=== PATIENT | female | born 1980 | race Caucasian/White ===

== ENCOUNTER 2024-04-23 16:49 | Inpatient (IN) | payer OTHER ==
[2024-04-23 20:56] LABS: BASO % 1.1 % (0-2.0); HEMATOCRIT 36.2 % (32.4-45.2); HEMOGLOBIN 11.9 GM/dL (10.7-15.3); LYMPH % 20.4 % (8-40); MCH 28.9 pg (25.7-33.7); MCHC 32.9 g/dl (32.0-36.0); MEAN CELL VOLUME 87.6 fl (80-96); MEAN PLT VOLUME 8.6 fl (7.5-11.1); MONO % 8.9 % (3.8-10.2); NEUT % 68.6 % (42.8-82.8); PLATELET COUNT 386 10^3/uL (134-434); RBC 4.13 M/mm3 (3.60-5.2); RDW 15.8 % (11.6-15.6); WHITE BLOOD COUNT 13.9 K/mm3 (4.0-10.0)
[2024-04-23 21:06] LABS: INR 1.39 (0.83-1.09); PROTHROMBIN TIME (PATIENT) 15.3 SEC (9.7-13.0)
[2024-04-23 21:09] LABS: ACTIVATED PTT 34.3 SECONDS (25.2-36.5)
[2024-04-23 21:18] LABS: POTASSIUM 4.6 mmol/L (3.5-5.1)
[2024-04-23 21:20] LABS: ALBUMIN 3.2 g/dl (3.4-5.0); BLOOD UREA NITROGEN 14.5 mg/dL (7-18); CALCIUM 9.4 mg/dL (8.5-10.1)
[2024-04-23 21:23] LABS: CREATININE 0.8 mg/dL (0.55-1.3)
[2024-04-23 21:25] LABS: TOT PROT 7.1 g/dl (6.4-8.2)
[2024-04-23 21:46] LABS: ERYTHROCYTE SEDIMENTATION RATE 78 mm/hr (0-20)
[2024-04-24] MEDS ORDERED: ACETAMINOPHEN 500 MG TABLET (FP) PO PRN (02:08)
[2024-04-24 02:43] VITALS: BMI 36.8
[2024-04-24] MEDS: BENZTROPINE MESYLATE 2 MG TABLET PO SCH (11:28)
[2024-04-24] MEDS: ENOXAPARIN NA (PORCINE) 40 MG/0.4 ML DISP.SYRIN SQ SCH (11:29)
[2024-04-24 12:49] LABS: HEMATOCRIT 36.7 % (32.4-45.2); HEMOGLOBIN 12.2 GM/dL (10.7-15.3); MCH 28.8 pg (25.7-33.7); MCHC 33.2 g/dl (32.0-36.0); MEAN PLT VOLUME 8.7 fl (7.5-11.1); PLATELET COUNT 373 10^3/uL (134-434); RBC 4.22 M/mm3 (3.60-5.2); RDW 15.7 % (11.6-15.6); WHITE BLOOD COUNT 11.8 K/mm3 (4.0-10.0)
[2024-04-24 13:11] LABS: POTASSIUM 4.6 mmol/L (3.5-5.1)
[2024-04-24 13:18] LABS: CALCIUM 9.1 mg/dL (8.5-10.1)
[2024-04-24 13:19] LABS: ALBUMIN 3.1 g/dl (3.4-5.0); BLOOD UREA NITROGEN 14.6 mg/dL (7-18)
[2024-04-24 13:21] LABS: BILIRUBIN,TOTAL 1.2 mg/dL (0.2-1); TOT PROT 6.8 g/dl (6.4-8.2)
[2024-04-24 13:22] LABS: CREATININE 0.8 mg/dL (0.55-1.3)
[2024-04-24 18:44] LABS: INR 1.46 (0.83-1.09); PROTHROMBIN TIME (PATIENT) 15.9 SEC (9.7-13.0)
[2024-04-24 18:58] LABS: POTASSIUM 4.1 mmol/L (3.5-5.1)
[2024-04-24 19:00] LABS: BLOOD UREA NITROGEN 16.9 mg/dL (7-18); CALCIUM 9.1 mg/dL (8.5-10.1)
[2024-04-24 19:04] LABS: CREATININE 0.8 mg/dL (0.55-1.3)
[2024-04-24 19:05] LABS: BILIRUBIN,TOTAL 0.9 mg/dL (0.2-1); TOT PROT 6.8 g/dl (6.4-8.2)
[2024-04-24] MEDS: ACETAMINOPHEN 500 MG TABLET (FP) PO PRN (20:41)
[2024-04-24] MEDS: GABAPENTIN 300 MG CAPSULE PO SCH (22:09)
[2024-04-24] MEDS: DEXAMETHASONE SOD PHOSPHATE 10 MG/1 ML VIAL IVPUSH SCH (22:09)
[2024-04-25] MEDS: DEXAMETHASONE SOD PHOSPHATE 10 MG/1 ML VIAL IVPB SCH (01:53)
[2024-04-25 09:14] LABS: BASO % 0.3 % (0-2.0); HEMATOCRIT 36.9 % (32.4-45.2); LYMPH % 13.8 % (8-40); MCH 28.7 pg (25.7-33.7); MCHC 32.6 g/dl (32.0-36.0); MONO % 1.4 % (3.8-10.2); NEUT % 84.5 % (42.8-82.8); PLATELET COUNT 388 10^3/uL (134-434); RDW 15.9 % (11.6-15.6); WHITE BLOOD COUNT 8.1 K/mm3 (4.0-10.0)
[2024-04-25 09:42] LABS: MAGNESIUM 2.2 mg/dL (1.8-2.4); POTASSIUM 4.5 mmol/L (3.5-5.1)
[2024-04-25 09:45] LABS: CALCIUM 9.1 mg/dL (8.5-10.1)
[2024-04-25 09:46] LABS: MAGNESIUM 2.1 mg/dL (1.8-2.4); PHOSPHOROUS 4.3 mg/dL (2.5-4.9)
[2024-04-25 09:49] LABS: CREATININE 0.8 mg/dL (0.55-1.3); PHOSPHOROUS 4.3 mg/dL (2.5-4.9)
[2024-04-25 09:50] LABS: BILIRUBIN,TOTAL 1.2 mg/dL (0.2-1); TOT PROT 7.1 g/dl (6.4-8.2)
[2024-04-25] MEDS: ENOXAPARIN NA (PORCINE) 40 MG/0.4 ML DISP.SYRIN SQ ONE (17:53)
[2024-04-26] MEDS ORDERED: BACITRACIN ZINC 15 GM TUBE TOPICAL OINTMENT ONE ×2 (07:22→14:41)
[2024-04-26] MEDS ORDERED: LIDOCAINE HCL/PF 2% SDV 5ML VIAL ONE (07:32)
[2024-04-26] MEDS ORDERED: PROPOFOL 80 ML ONE (07:32)
[2024-04-26] MEDS ORDERED: ceFAZolin SODIUM 1 GM VIAL ONE ×2 (07:32→07:40)
[2024-04-26] MEDS ORDERED: BUPIVACAINE HCL/PF 0.5% (5MG/ML) 10 ML VIAL ONE (07:40)
[2024-04-26] MEDS ORDERED: THROMBIN (BOVINE) 20,000 UNIT VIAL TP ONE (07:40)
[2024-04-26] MEDS ORDERED: EPINEPHrine 1:1000 P/F - 1 MG/ML AMP ONE (07:40)
[2024-04-26 08:11] LABS: POTASSIUM 4.7 mmol/L (3.5-5.1)
[2024-04-26 08:18] LABS: BASO % 0.1 % (0-2.0); HEMATOCRIT 34.9 % (32.4-45.2); HEMOGLOBIN 11.4 GM/dL (10.7-15.3); LYMPH % 11.5 % (8-40); MCH 28.6 pg (25.7-33.7); MCHC 32.6 g/dl (32.0-36.0); MEAN CELL VOLUME 87.9 fl (80-96); MEAN PLT VOLUME 8.9 fl (7.5-11.1); NEUT % 85.4 % (42.8-82.8); PLATELET COUNT 425 10^3/uL (134-434); RBC 3.97 M/mm3 (3.60-5.2); RDW 15.6 % (11.6-15.6)
[2024-04-26 08:21] LABS: BILIRUBIN,TOTAL 0.6 mg/dL (0.2-1)
[2024-04-26 08:31] LABS: CALCIUM 9.3 mg/dL (8.5-10.1)
[2024-04-26 08:32] LABS: ALBUMIN 2.8 g/dl (3.4-5.0); BLOOD UREA NITROGEN 19.7 mg/dL (7-18)
[2024-04-26 08:35] LABS: CREATININE 0.8 mg/dL (0.55-1.3)
[2024-04-26 08:37] LABS: TOT PROT 6.7 g/dl (6.4-8.2)
[2024-04-26 08:38] LABS: INR 1.32 (0.83-1.09); PROTHROMBIN TIME (PATIENT) 14.4 SEC (9.7-13.0)
[2024-04-26 08:41] LABS: ACTIVATED PTT 30.8 SECONDS (25.2-36.5)
[2024-04-26] MEDS ORDERED: MIDAZOLAM HCL 2 MG/2 ML SINGLE DOSE VIAL ONE (08:45)
[2024-04-26] MEDS ORDERED: TRANEXAMIC ACID 1000 MG/10 ML VIAL ONE (08:50)
[2024-04-26] MEDS: ceFAZolin SODIUM 1 GM VIAL IVPB ONE ×2 (09:30→10:39)
[2024-04-26] MEDS ORDERED: HYDROmorphone HCl 2 MG/ML VIAL ONE (10:11)
[2024-04-26] MEDS ORDERED: PROPOFOL 20 ML ONE ×5 (10:12→13:35)
[2024-04-26] MEDS ORDERED: PROPOFOL 40 ML ONE ×2 (10:29→12:43)
[2024-04-26] MEDS: HYDROGEN PEROXIDE 473 ML PO ONE (10:39)
[2024-04-26] MEDS ORDERED: SUGAMMADEX SODIUM 200 MG/2 ML VIAL ONE ×2 (11:11)
[2024-04-26] MEDS ORDERED: PROPOFOL 60 ML ONE (11:47)
[2024-04-26] MEDS: metoPROLOL SUCCINATE 25 MG TAB.SR.24H (FP) PO SCH (12:55)
[2024-04-26] MEDS: LURASIDONE HCL 40 MG TABLET PO SCH (12:55)
[2024-04-26] MEDS ORDERED: VANCOMYCIN 1,000 MG VIAL (RESTRICTED TO ID ONLY) ONE ×2 (13:45→13:47)
[2024-04-26] MEDS: VANCOMYCIN 1,000 MG VIAL (RESTRICTED TO ID ONLY) IVPB ONE (14:00)
[2024-04-26] MEDS ORDERED: ONDANSETRON 4 MG/2 ML VIAL IVPUSH PRN (15:14)
[2024-04-26] MEDS ORDERED: diazePAM CARPU-JECT 10 MG/2 ML DISP.SYRIN IVPUSH PRN (15:55)
[2024-04-26 16:06] LABS: HEMATOCRIT 31.5 % (32.4-45.2); HEMOGLOBIN 10.3 GM/dL (10.7-15.3); MCH 28.6 pg (25.7-33.7); MCHC 32.7 g/dl (32.0-36.0); MEAN CELL VOLUME 87.2 fl (80-96); MEAN PLT VOLUME 8.5 fl (7.5-11.1); PLATELET COUNT 447 10^3/uL (134-434); RBC 3.61 M/mm3 (3.60-5.2); RDW 15.9 % (11.6-15.6); WHITE BLOOD COUNT 22.5 K/mm3 (4.0-10.0)
[2024-04-26] MEDS: ACETAMINOPHEN 1000 MG/100 ML BAG IVPB PRN (16:16)
[2024-04-26] MEDS: LACTATED RINGERS SOLUTION 1,000 ML IV SCH ×2 (16:26→17:00)
[2024-04-26 16:35] LABS: POTASSIUM 4.6 mmol/L (3.5-5.1)
[2024-04-26 16:36] LABS: CALCIUM 8.7 mg/dL (8.5-10.1)
[2024-04-26 16:37] LABS: BLOOD UREA NITROGEN 18.4 mg/dL (7-18)
[2024-04-26 16:40] LABS: CREATININE 0.8 mg/dL (0.55-1.3)
[2024-04-26] MEDS: PANTOPRAZOLE SODIUM 40 MG VIAL IVPUSH SCH (21:37)
[2024-04-26] MEDS: CEFAZOLIN 2 GM/D5W 2 GM/50 ML ML IVPB SCH (22:29)
[2024-04-27 07:34] LABS: POTASSIUM 4.6 mmol/L (3.5-5.1)
[2024-04-27 07:38] LABS: ALBUMIN 2.5 g/dl (3.4-5.0); BLOOD UREA NITROGEN 16.3 mg/dL (7-18); CALCIUM 8.5 mg/dL (8.5-10.1)
[2024-04-27 07:42] LABS: BASO % 0.1 % (0-2.0); HEMATOCRIT 29.7 % (32.4-45.2); HEMOGLOBIN 9.8 GM/dL (10.7-15.3); MCH 28.9 pg (25.7-33.7); MEAN CELL VOLUME 87.4 fl (80-96); MEAN PLT VOLUME 8.9 fl (7.5-11.1); MONO % 5.3 % (3.8-10.2); NEUT % 87.6 % (42.8-82.8); PHOSPHOROUS 3.9 mg/dL (2.5-4.9); PLATELET COUNT 379 10^3/uL (134-434); RDW 15.1 % (11.6-15.6); WHITE BLOOD COUNT 16.9 K/mm3 (4.0-10.0)
[2024-04-27 07:43] LABS: BILIRUBIN,TOTAL 0.6 mg/dL (0.2-1)
[2024-04-27 07:50] LABS: TOT PROT 5.8 g/dl (6.4-8.2)
[2024-04-27 07:52] LABS: CREATININE 0.7 mg/dL (0.55-1.3)
[2024-04-27] MEDS: CEFAZOLIN 2 GM/D5W 2 GM/50 ML ML IVPB SCH (12:25)
[2024-04-27 14:06] LABS: FREE KAP CHN UR 116.23 mg/L (1.17-86.46); KAPPA LAMBDA RATIO URIN 8.35 (1.83-14.26)
[2024-04-27] MEDS: ONDANSETRON 4 MG/2 ML VIAL IVPUSH PRN (17:19)
[2024-04-27] MEDS: oxyCODONE HCL 5 MG TABLET PO PRN (17:53)
[2024-04-28 06:30] LABS: POTASSIUM 4.6 mmol/L (3.5-5.1)
[2024-04-28 06:34] LABS: BASO % 0.2 % (0-2.0); HEMATOCRIT 29.7 % (32.4-45.2); HEMOGLOBIN 9.7 GM/dL (10.7-15.3); LYMPH % 7.9 % (8-40); MCH 28.6 pg (25.7-33.7); MCHC 32.6 g/dl (32.0-36.0); MEAN CELL VOLUME 87.6 fl (80-96); MEAN PLT VOLUME 8.9 fl (7.5-11.1); MONO % 7.2 % (3.8-10.2); NEUT % 84.7 % (42.8-82.8); PLATELET COUNT 329 10^3/uL (134-434); RBC 3.39 M/mm3 (3.60-5.2); RDW 15.3 % (11.6-15.6); WHITE BLOOD COUNT 15.8 K/mm3 (4.0-10.0)
[2024-04-28 06:35] LABS: ALBUMIN 2.4 g/dl (3.4-5.0); BLOOD UREA NITROGEN 17.9 mg/dL (7-18); MAGNESIUM 2.2 mg/dL (1.8-2.4)
[2024-04-28 06:38] LABS: CREATININE 0.7 mg/dL (0.55-1.3); PHOSPHOROUS 3.8 mg/dL (2.5-4.9)
[2024-04-28 06:40] LABS: BILIRUBIN,TOTAL 0.5 mg/dL (0.2-1); TOT PROT 5.8 g/dl (6.4-8.2)
[2024-04-28] MEDS: CEFAZOLIN 2 GM/D5W 2 GM/50 ML ML IVPB SCH (14:16)
[2024-04-28] MEDS: CEFAZOLIN SODIUM 2 GM VIAL IVPB SCH (14:18)
[2024-04-28 18:07] LABS: FREE KAPPA,SERUM 28.2 mg/L (3.3-19.4)
[2024-04-29 08:56] LABS: HEMATOCRIT 28.9 % (32.4-45.2); HEMOGLOBIN 9.5 GM/dL (10.7-15.3); MCH 28.8 pg (25.7-33.7); MEAN CELL VOLUME 87.3 fl (80-96); MEAN PLT VOLUME 8.8 fl (7.5-11.1); PLATELET COUNT 286 10^3/uL (134-434); RBC 3.31 M/mm3 (3.60-5.2); RDW 15.3 % (11.6-15.6); WHITE BLOOD COUNT 13.3 K/mm3 (4.0-10.0)
[2024-04-29 09:17] LABS: POTASSIUM 3.9 mmol/L (3.5-5.1)
[2024-04-29 09:21] LABS: ALBUMIN 2.2 g/dl (3.4-5.0); BLOOD UREA NITROGEN 14.4 mg/dL (7-18); CALCIUM 8.6 mg/dL (8.5-10.1)
[2024-04-29 09:22] LABS: MAGNESIUM 2.1 mg/dL (1.8-2.4)
[2024-04-29 09:24] LABS: CREATININE 0.7 mg/dL (0.55-1.3); PHOSPHOROUS 2.5 mg/dL (2.5-4.9)
[2024-04-29 09:26] LABS: BILIRUBIN,TOTAL 0.4 mg/dL (0.2-1); TOT PROT 5.4 g/dl (6.4-8.2)
[2024-04-29] MEDS: oxyCODONE HCL 5 MG TABLET PO PRN (17:48)
[2024-04-30 07:17] LABS: INR 1.54 (0.83-1.09); PROTHROMBIN TIME (PATIENT) 16.9 SEC (9.7-13.0)
[2024-04-30 07:30] LABS: HEMATOCRIT 27.6 % (32.4-45.2); HEMOGLOBIN 9.2 GM/dL (10.7-15.3); MCHC 33.3 g/dl (32.0-36.0); MEAN CELL VOLUME 87.1 fl (80-96); MEAN PLT VOLUME 8.9 fl (7.5-11.1); PLATELET COUNT 290 10^3/uL (134-434); RBC 3.17 M/mm3 (3.60-5.2); RDW 15.5 % (11.6-15.6); WHITE BLOOD COUNT 14.6 K/mm3 (4.0-10.0)
[2024-04-30 07:37] LABS: ALBUMIN 2.1 g/dl (3.4-5.0); BLOOD UREA NITROGEN 13.7 mg/dL (7-18); CALCIUM 8.3 mg/dL (8.5-10.1); MAGNESIUM 1.9 mg/dL (1.8-2.4)
[2024-04-30 07:40] LABS: CREATININE 0.6 mg/dL (0.55-1.3); PHOSPHOROUS 3.6 mg/dL (2.5-4.9)
[2024-04-30 07:42] LABS: BILIRUBIN,TOTAL 0.3 mg/dL (0.2-1)
[2024-04-30] MEDS: CEFAZOLIN SODIUM 2 GM in DEXTROSE 5%-WATER - 50 ML IVPB SCH (10:15)
[2024-04-30] MEDS: PANTOPRAZOLE 40 MG TABLET PO SCH (10:23)
[2024-04-30] MEDS ORDERED: THROMBIN (BOVINE) 20,000 UNIT VIAL TP ONE (11:35)
[2024-04-30] MEDS ORDERED: BACITRACIN ZINC 15 GM TUBE TOPICAL OINTMENT ONE (11:35)
[2024-04-30] MEDS ORDERED: VANCOMYCIN 1,000 MG VIAL (RESTRICTED TO ID ONLY) ONE (11:39)
[2024-04-30] MEDS ORDERED: GENTAMICIN SO4 80 MG/2 ML VIAL ONE (11:39)
[2024-04-30] MEDS ORDERED: BUPIVACAINE LIPOSOME/PF (EXPAREL) 266 MG/20 ML VIAL ONE (11:50)
[2024-04-30] MEDS ORDERED: EPINEPHrine 1:1000 P/F - 1 MG/ML AMP ONE (12:07)
[2024-04-30] MEDS: THROMBIN (BOVINE) 20,000 UNIT VIAL TP ONE (13:49)
[2024-04-30] MEDS: BUPIVACAINE LIPOSOME/PF (EXPAREL) 266 MG/20 ML VIAL NR ONE (13:50)
[2024-04-30] MEDS: BUPIVACAINE HCL/PF 0.5% (5 MG/ML) 30 ML VIAL IJ ONE (13:52)
[2024-04-30] MEDS: POLYETHYLENE GLYCOL (HEALTHYLAX) 3350 17 GM PACKET PO SCH (17:22)
[2024-05-01 07:31] LABS: BASO % 0.3 % (0-2.0); EOS % 0.4 % (0-4.5); HEMATOCRIT 25.3 % (32.4-45.2); HEMOGLOBIN 8.4 GM/dL (10.7-15.3); LYMPH % 11.8 % (8-40); MCH 29.4 pg (25.7-33.7); MCHC 33.2 g/dl (32.0-36.0); MEAN CELL VOLUME 88.3 fl (80-96); MONO % 7.4 % (3.8-10.2); NEUT % 80.1 % (42.8-82.8); PLATELET COUNT 283 10^3/uL (134-434); RBC 2.86 M/mm3 (3.60-5.2); RDW 15.3 % (11.6-15.6)
[2024-05-01 07:40] LABS: POTASSIUM 4.2 mmol/L (3.5-5.1)
[2024-05-01 07:50] LABS: CALCIUM 8.2 mg/dL (8.5-10.1)
[2024-05-01 07:51] LABS: BLOOD UREA NITROGEN 10.2 mg/dL (7-18); MAGNESIUM 1.9 mg/dL (1.8-2.4)
[2024-05-01 07:52] LABS: CREATININE 0.5 mg/dL (0.55-1.3)
[2024-05-01 07:53] LABS: BILIRUBIN,TOTAL 0.4 mg/dL (0.2-1)
[2024-05-01 07:55] LABS: TOT PROT 4.8 g/dl (6.4-8.2)
[2024-05-01 09:24] LABS: URIC ACID 3.8 mg/dL (2.6-7.2)
[2024-05-01 12:23] LABS: HEPATITIS B SURFACE AG MATERN NON-REACTIVE (NONREACTIVE)
[2024-05-01 12:51] LABS: HIV INTERPRETATION NEGATIVE (NEGATIVE)
[2024-05-01] MEDS: ENOXAPARIN NA (PORCINE) 40 MG/0.4 ML DISP.SYRIN SQ SCH (16:04)
[2024-05-02 06:19] LABS: HEMATOCRIT 24.2 % (32.4-45.2); HEMOGLOBIN 7.9 GM/dL (10.7-15.3); MCHC 32.8 g/dl (32.0-36.0); MEAN CELL VOLUME 88.4 fl (80-96); MEAN PLT VOLUME 8.8 fl (7.5-11.1); PLATELET COUNT 279 10^3/uL (134-434); RBC 2.74 M/mm3 (3.60-5.2); RDW 15.6 % (11.6-15.6); WHITE BLOOD COUNT 14.2 K/mm3 (4.0-10.0)
[2024-05-02 06:39] LABS: ALBUMIN 1.8 g/dl (3.4-5.0); BLOOD UREA NITROGEN 9.1 mg/dL (7-18); MAGNESIUM 1.9 mg/dL (1.8-2.4)
[2024-05-02 06:42] LABS: CREATININE 0.6 mg/dL (0.55-1.3); PHOSPHOROUS 2.6 mg/dL (2.5-4.9)
[2024-05-02 06:43] LABS: BILIRUBIN,TOTAL 0.4 mg/dL (0.2-1)
[2024-05-02 06:44] LABS: TOT PROT 4.5 g/dl (6.4-8.2)
[2024-05-02] MEDS: MAGNESIUM 1GM/D5W - 1 GM/100 ML IVPB IVPB ONE (07:52)
[2024-05-02] MEDS: CycloBENZAprine HCL 10 MG TABLET (FP) PO PRN (18:33)
[2024-05-03 06:48] LABS: POTASSIUM 3.9 mmol/L (3.5-5.1)
[2024-05-03 06:49] LABS: CALCIUM 8.1 mg/dL (8.5-10.1)
[2024-05-03 06:50] LABS: BLOOD UREA NITROGEN 7.7 mg/dL (7-18)
[2024-05-03 06:53] LABS: CREATININE 0.5 mg/dL (0.55-1.3); PHOSPHOROUS 2.6 mg/dL (2.5-4.9)
[2024-05-03 06:54] LABS: MAGNESIUM 1.9 mg/dL (1.8-2.4)
[2024-05-03 06:56] LABS: HEMATOCRIT 23.7 % (32.4-45.2); HEMOGLOBIN 7.7 GM/dL (10.7-15.3); MCH 28.7 pg (25.7-33.7); MCHC 32.5 g/dl (32.0-36.0); MEAN CELL VOLUME 88.5 fl (80-96); MEAN PLT VOLUME 8.9 fl (7.5-11.1); PLATELET COUNT 284 10^3/uL (134-434); RBC 2.68 M/mm3 (3.60-5.2); RDW 15.9 % (11.6-15.6); WHITE BLOOD COUNT 14.1 K/mm3 (4.0-10.0)
[2024-05-04 07:12] LABS: HEMATOCRIT 25.9 % (32.4-45.2); HEMOGLOBIN 8.4 GM/dL (10.7-15.3); MCH 28.2 pg (25.7-33.7); MCHC 32.2 g/dl (32.0-36.0); MEAN CELL VOLUME 87.5 fl (80-96); MEAN PLT VOLUME 8.9 fl (7.5-11.1); PLATELET COUNT 316 10^3/uL (134-434); RBC 2.96 M/mm3 (3.60-5.2); RDW 15.7 % (11.6-15.6); WHITE BLOOD COUNT 13.8 K/mm3 (4.0-10.0)
[2024-05-04 08:06] LABS: CALCIUM 8.3 mg/dL (8.5-10.1)
[2024-05-04 08:07] LABS: BLOOD UREA NITROGEN 6.5 mg/dL (7-18)
[2024-05-04 08:10] LABS: CREATININE 0.5 mg/dL (0.55-1.3)
[2024-05-04 08:11] LABS: PHOSPHOROUS 2.9 mg/dL (2.5-4.9)
[2024-05-04] MEDS: CEFAZOLIN 2 GM/D5W 2 GM/50 ML ML IVPB SCH (16:14)
[2024-05-04] MEDS: POLYETHYLENE GLYCOL (HEALTHYLAX) 3350 17 GM PACKET PO SCH (22:23)
[2024-05-04] MEDS: SENNOSIDES 8.8 MG/5 ML SYRUP PO SCH (22:24)
[2024-05-05 04:16] VITALS: RESP 18
[2024-05-05] MEDS ORDERED: diazePAM CARPU-JECT 10 MG/2 ML DISP.SYRIN IVPUSH PRN (07:28)
[2024-05-05] MEDS ORDERED: ONDANSETRON 4 MG/2 ML VIAL IVPUSH PRN (07:28)
[2024-05-05] MEDS ORDERED: PANTOPRAZOLE 40 MG TABLET PO SCH (10:00)
[2024-05-05] MEDS: metoPROLOL SUCCINATE 25 MG TAB.SR.24H (FP) PO SCH (10:58)
[2024-05-05] MEDS: PANTOPRAZOLE 40 MG TABLET PO SCH (10:58)
[2024-05-05] MEDS: GABAPENTIN 300 MG CAPSULE PO SCH (10:59)
[2024-05-05] MEDS: POLYETHYLENE GLYCOL (HEALTHYLAX) 3350 17 GM PACKET PO SCH (10:59)
[2024-05-05] MEDS: LURASIDONE HCL 40 MG TABLET PO SCH (10:59)
[2024-05-05] MEDS: BENZTROPINE MESYLATE 2 MG TABLET PO SCH (10:59)
[2024-05-05 16:35] LABS: HEMATOCRIT 28.2 % (34.1-44.9); HEMOGLOBIN 8.8 g/dL (11.2-15.7); MCHC 31.2 g/dl (32.2-35.5); MEAN CELL VOLUME 92.2 fl (79.4-94.8); PLATELET COUNT # 440 x10^3/uL (182-369); RDW 15.8 % (12.2-17.1)
[2024-05-05 16:46] LABS: POTASSIUM 4.8 mmol/L (3.5-5.1)
[2024-05-05 16:48] LABS: ALBUMIN 2.1 g/dl (3.4-5.0); CALCIUM 8.6 mg/dL (8.5-10.1)
[2024-05-05 16:49] LABS: BLOOD UREA NITROGEN 7.3 mg/dL (7-18); MAGNESIUM 1.9 mg/dL (1.8-2.4)
[2024-05-05 16:52] LABS: CREATININE 0.9 mg/dL (0.55-1.3); PHOSPHOROUS 2.7 mg/dL (2.5-4.9)
[2024-05-05 16:53] LABS: BILIRUBIN,TOTAL 0.5 mg/dL (0.2-1); TOT PROT 5.6 g/dl (6.4-8.2)
[2024-05-05] MEDS: ENOXAPARIN NA (PORCINE) 40 MG/0.4 ML DISP.SYRIN SQ SCH (17:13)
[2024-05-05] MEDS: ACETAMINOPHEN 500 MG TABLET (FP) PO PRN (19:50)
[2024-05-05] MEDS: SENNOSIDES 8.8 MG/5 ML SYRUP PO SCH (21:34)
[2024-05-06] MEDS: POLYETHYLENE GLYCOL (HEALTHYLAX) 3350 17 GM PACKET PO SCH (14:39)
[2024-05-06 21:40] VITALS: BP 86/64; PULSE 106; TEMP 98.4
[2024-05-06] MEDS: CycloBENZAprine HCL 5 MG TABLET PO PRN (23:04)
[2024-05-07] MEDS: LIDOCAINE 4% PATCH TP ONE (00:02)
[2024-05-07] MEDS: LIDOCAINE PATCH REMOVAL MC SCH (02:13)
== END 2024-05-07 01:26 | disposition short-term general hospital (02) | DRG 304 ==
LOC: JER 16:49 → JERBED 18:15 → J6S 04-24 02:02 → JICU 04-26 17:22 → J6S 05-04 14:49
PROVIDERS: ADMIT Student in an Organized Health Care Education/Training Program; ATTEND Student in an Organized Health Care Education/Training Program
PROC: 4A1004G Monitoring of Central Nervous Electrical Activity, Intraoperative, Open Approach (ICD-10-PCS; 2024-04-26)
PROC: 0SG10K1 Fusion of 2 or more Lumbar Vertebral Joints with Nonautologous Tissue Substitute, Posterior Approach, Posterior Column, Open Approach (ICD-10-PCS; 2024-04-26)
PROC: 0QB00ZX Excision of Lumbar Vertebra, Open Approach, Diagnostic (ICD-10-PCS; 2024-04-26)
PROC: 4A11X4G Monitoring of Peripheral Nervous Electrical Activity, Intraoperative, External Approach (ICD-10-PCS; 2024-04-26)
PROC: 0RG40K1 Fusion of Cervicothoracic Vertebral Joint with Nonautologous Tissue Substitute, Posterior Approach, Posterior Column, Open Approach (ICD-10-PCS; 2024-04-30)
PROC: 0RG60K1 Fusion of Thoracic Vertebral Joint with Nonautologous Tissue Substitute, Posterior Approach, Posterior Column, Open Approach (ICD-10-PCS; 2024-04-30)
PROC: 0RG20K1 Fusion of 2 or more Cervical Vertebral Joints with Nonautologous Tissue Substitute, Posterior Approach, Posterior Column, Open Approach (ICD-10-PCS; principal; 2024-04-30 11:30)
DX: C79.51 Secondary malignant neoplasm of bone (principal); C83.30 Diffuse large B-cell lymphoma, unspecified site; M84.58XA Pathological fracture in neoplastic disease, other specified site, initial encounter for fracture; F20.9 Schizophrenia, unspecified; K86.89 Other specified diseases of pancreas; E66.01 Morbid (severe) obesity due to excess calories; M48.061 Spinal stenosis, lumbar region without neurogenic claudication; D72.829 Elevated white blood cell count, unspecified; D75.839 Thrombocytosis, unspecified; K59.00 Constipation, unspecified; R62.50 Unspecified lack of expected normal physiological development in childhood; Z68.36 Body mass index [BMI] 36.0-36.9, adult
CPT/HCPCS: 0241U-QW; 36415; 70450-TC; 70496-TC; 70498-TC; 70551-TC; 70553-TC; 71045-TC-FY; 71260-TC; 72100-TC-FY; 72133-TC; 72149-TC; 72156-TC; 72157-TC; 73070-TC-LT-FY; 73090-TC-LT-FY; 74177-TC; 74183-TC; 76000-TC-FY; 80048; 80053; 80061; 82232; 82962; 83605; 83615; 83735; 83883; 84100; 84155; 84165; 84439; 84443; 84550; 85025; 85027; 85610; 85651; 85730; 86140; 86301; 86705; 86850; 86900; 86901; 86922; 87070; 87205; 87340; 87389; 87517; 88307-TC; 88341-TC; 88342-TC; 93005; 93010; 93971; 94010; 94760; 97116-GP; 97162-GP; 99285-25; C1713; J0131; J0666; J1100; Q9967